=== PATIENT | male | born 1990 | race Caucasian/White ===

== ENCOUNTER 2018-10-08 06:52 | Day surgery (SDC) | payer OTHER ==
[2018-10-08] MEDS: SOD CHLORIDE 0.9% 1,000 ML IV (07:55)
[2018-10-08] MEDS ORDERED: GLYCOPYRROLATE 0.4 MG INJ (09:10)
[2018-10-08] MEDS ORDERED: ROCURONIUM 50 MG INJ (09:10)
[2018-10-08] MEDS ORDERED: PROPOFOL 20 ML (09:10)
[2018-10-08] MEDS ORDERED: NEOSTIGMINE 3 MG/3 ML SYRINGE (09:10)
[2018-10-08] MEDS ORDERED: METOCLOPRAMIDE 10 MG INJ (09:11)
[2018-10-08] MEDS ORDERED: ONDANSETRON 4 MG INJ (09:11)
[2018-10-08] MEDS ORDERED: MIDAZOLAM 1 MG/ML 2 ML INJ (09:11)
[2018-10-08] MEDS ORDERED: CEFAZOLIN 1 GM INJ (09:11)
[2018-10-08] MEDS ORDERED: ROPIVACAINE 0.5 % 30 ML VIAL (09:11)
[2018-10-08] MEDS ORDERED: DIPHENHYDRAMINE 50 MG INJ IV (09:30)
[2018-10-08] MEDS ORDERED: hydrALAzine 20 MG INJ IV (09:30)
[2018-10-08] MEDS ORDERED: FENTAnyl 50 MCG/ML VIAL IV ×2 (09:30)
[2018-10-08] MEDS ORDERED: HYDROmorphONE 1 MG/5 ML IV SYRINGE IV (09:30)
[2018-10-08] MEDS ORDERED: LABETALOL HCL 20MG INJ IV (09:30)
[2018-10-08] MEDS ORDERED: OXYCODONE/ACETAMINOPHEN (5/325) TAB PO (09:30)
[2018-10-08] MEDS ORDERED: KETOROLAC 30 MG INJ IV ×2 (09:30→11:00)
[2018-10-08] MEDS: POLYMYXIN/BACITRACIN 1L IRRIG (09:48)
[2018-10-08] MEDS ORDERED: CEFAZOLIN 2 GM/50 ML (PMX) 50 ML IVPB (10:00)
[2018-10-08] MEDS ORDERED: EPHEDrine 25 MG/5 ML SYG (10:40)
[2018-10-08] MEDS: BUPIVACAINE 0.25%/EPI (SDV) 30 ML INJ (10:44)
[2018-10-08] MEDS ORDERED: morphine 2 MG INJ IV (11:00)
[2018-10-08] MEDS ORDERED: HYDROCODONE/APAP (5/325) TAB PO ×2 (11:00)
[2018-10-08] MEDS ORDERED: ONDANSETRON 4 MG INJ IV (11:00)
[2018-10-08] MEDS ORDERED: IBUPROFEN 600 MG TAB PO (11:00)
[2018-10-08] MEDS: ONDANSETRON 4 MG INJ IV (11:14)
[2018-10-08] MEDS: MEPERIDINE 25 MG INJ IV (11:14)
[2018-10-08] MEDS: HYDROmorphONE 1 MG/5 ML IV SYRINGE IV ×2 (11:14→11:22)
[2018-10-08] MEDS: FENTAnyl 50 MCG/ML VIAL IV ×2 (11:15→11:23)
[2018-10-08] MEDS: OXYCODONE/ACETAMINOPHEN (5/325) TAB PO ×2 (12:22→13:19)
== END 2018-10-08 14:33 | disposition home or self-care (01) ==
LOC: SDS 06:52
DX: K40.90 Unilateral inguinal hernia, without obstruction or gangrene, not specified as recurrent (principal)
CPT/HCPCS: 49505; 88302; 88304